=== PATIENT | female | born 1970 | race Caucasian/White ===

== ENCOUNTER 2016-10-29 10:40 | Outpatient (CLI) | payer OTHER ==
[2015-06-10 11:35] VITALS: BP 146/77
[2016-10-29 11:00] LABS: BASOPHILS % 0.4 (0.0-1.5); EOSINOPHILS % 4.1 % (0.0-6.8); MEAN CORPUSCULAR HEMOGLOBIN 27.8 pg (28.0-34.0); MEAN CORPUSCULAR VOLUME 86.5 fl (80.0-100.0); MONOCYTES % 3.5 % (0.0-11.0); NEUTROPHILS # 5.9 # k/uL (1.4-7.7)
[2016-10-29 11:20] LABS: eGFR (African) > 60; eGFR (Non-African) > 60
--- NOTE | 2016-10-29 17:38 | Diagnostic Imaging Report ---
[facility] [address] [facility] [address] Report Submission Date: Oct 29, 2016 5:15:51 PM CDT Patient Study Name: TIMOTHY AREVALO Date: Oct 29, 2016 12:17:43 PM CDT Modality Type: US Gender: F Description: : 66 Institution: [facility] Physician: RILEY CALDERA Duplex sonography of deep venous system of the right lower extremity with color Doppler analysis . Clinical history: Pain and swelling with bruising of the right calf . There is a popliteal cyst of the right knee measures 6 x 4 x 3 cm. No visible deep venous thrombosis, the veins are patent and normally compressed from the right inguinal region down to the lower calf. Doppler signals and Doppler wave spine were obtained and appear to be normal Impression: Right popliteal cyst extending into the upper calf No deep venous thrombosis Electronically signed on Oct 29, 2016 5:15:51 PM CDT by: Royer LEE
== END 2016-10-29 10:42 ==
LOC: RAD 10:40
PROVIDERS: ATTEND Physician Assistant
DX: E03.9 Hypothyroidism, unspecified (principal); R53.83 Other fatigue; M79.661 Pain in right lower leg; Z86.718 Personal history of other venous thrombosis and embolism
CPT/HCPCS: 36415; 80053; 84443; 85025; 93971

== ENCOUNTER 2018-02-28 09:44 | Outpatient (CLI) | payer OTHER ==
[2015-06-10 11:35] VITALS: BP 146/77
== END 2018-02-28 09:45 ==
LOC: LAB 09:44
PROVIDERS: ATTEND Family Medicine
DX: E03.9 Hypothyroidism, unspecified (principal)
CPT/HCPCS: 36415; 84443

== ENCOUNTER 2018-08-02 08:59 | Outpatient (CLI) | payer OTHER ==
[2015-06-10 11:35] VITALS: BP 146/77
[2018-08-02 09:50] LABS: MEAN CORPUSCULAR HEMOGLOBIN 25.5 pg (28.0-34.0)
[2018-08-02 10:23] LABS: eGFR (Non-African) > 60
== END 2018-08-02 09:03 ==
LOC: LAB 08:59
PROVIDERS: ATTEND Family Medicine
DX: R10.11 Right upper quadrant pain (principal)
CPT/HCPCS: 36415; 80053; 85027

== ENCOUNTER 2018-12-29 10:06 | Outpatient (CLI) | payer OTHER ==
[2015-06-10 11:35] VITALS: BP 146/77
--- NOTE | 2019-02-02 10:42 | Diagnostic Imaging Report ---
GABRIEL MATOS [facility] [address] [facility] [address] [address] Report Submission Date: Dec 29, 2018 10:40:48 AM CDT Patient Study Name: TIMOTHY AREVALO Date: Dec 29, 2018 10:09:23 AM CDT Modality Type: DX Gender: F Description: ANKLE 3 VIEWS OR MORE : 66 Institution: [facility] Physician: GABRIEL MATOS Exam: Right ankle. History: Pain for 1 week. Injury. AP, lateral and mortise view of the right ankle are submitted. No signs of acute fracture or dislocations are identified. Sclerosis and spurring at the ankle joint is noted. Ankle mortise is adequately maintained. Medial soft tissue swelling is noted. Degenerate changes at the talonavicular joint are noted. Spur off the plantar surface of the calcaneus are noted. Impression: Degenerate changes. Heel spur. Medial soft tissue swelling. Electronically signed on Dec 29, 2018 10:40:48 AM CDT by: Bryn LEE
== END 2018-12-29 10:11 | disposition home or self-care (01) ==
LOC: RAD 10:06
PROVIDERS: ATTEND Family Medicine
DX: M25.571 Pain in right ankle and joints of right foot (principal)
CPT/HCPCS: 73610

== ENCOUNTER 2019-01-19 08:27 | Outpatient (CLI) | payer OTHER ==
[2015-06-10 11:35] VITALS: BP 146/77
--- NOTE | 2019-01-25 15:10 | OP Clinic Progress Note ---
NICOLE MASON ADMISSION#.: [id number] : 1970 DATE OF VISIT: 01/19/2019 SUBJECTIVE: Nicole Mason is a 48-year-old female presenting to clinic today for follow-up of right ankle/foot pain. The patient has had x-rays performed previously as well as an MRI performed previously. We have been unable to look at the x-rays or MRI previously due to computer issues. I was able to look at the x-rays today, however, as well as review the x-ray read suggesting spurring at the ankle joint as well as sclerosis at the ankle joint. Those are the most significant things noted. She also had the MRI read which I reviewed last visit that suggested right ankle arthritis and right lateral ankle ligament chronic sprain of the CFL as well as chronic complete ATFL tear of the right ankle as well as chronic deltoid ligament partial tear. The patient also admits to some Achilles tendinitis of the right foot today. The patient states that she is continuing to have pain and she has not been able to obtain an ankle brace yet. She states that if we are able to, or need to do a boot later on she will need to use a rollabout scooter so that she can protect herself. She has a bad left knee as well. The patient had a visit most recently where we gave her a prescription for the brace which she has not been able to obtain yet but at her most recent visit on 01/10/19 we discussed the possibility of an ankle injection to see how much improvement that gives her as she is having a significant amount of pain on the lateral ankle ligaments and lateral part of her ankle. OBJECTIVE: Vitals: Temperature 97.8, heart rate 85, respiration rate 18, blood pressure 103/58. O2 saturation is 93% on room air. Vascular: 2+ DP and PT pulses, right foot. Capillary refill time is less than 3 seconds to the toes of the right foot. There is no edema noted, right foot or ankle. Dermatologic: There is no ecchymosis noted or erythema or open lesions, right foot. Musculoskeletal: There is significant pain on palpation noted at the ATFL region of the right ankle as well as at the anterolateral aspect of the ankle, right side. There is also pain on palpation at the sinus tarsi of the right side of the right foot. There is also slight pain on palpation of the Achilles tendon in the watershed region of the right lower extremity. There is some pain with inversion of the subtalar joint deep within but there is no significant pain at the CFL region of the lateral ankle. There is normal range of motion of about 15-20 degrees inversion with only 5 or so degrees eversion of the right side. There is no significant pain with range of motion of the ankle. The pain with range of motion is more so in the distal Achilles area. Neurologic: Light touch sensation is intact to the toes, right foot. ASSESSMENT AND PLAN: 1. Right ankle arthritis. 2. Right lateral ankle ligament, chronic sprain of the CFL. 3. 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 4. Chronic deltoid partial tear, right. 5. Achilles tendinitis, right. A consent was obtained and discussion regarding the risks and benefits of a steroid injection in the right ankle. We will see if this provides any relief at this time for this patient due to the obvious arthritis on x-ray and spurring and sclerosis of the ankle joint. We will see if this also helps with the ATFL area where there is a complete tear. We will determine how much this helps. PROCEDURE #1: Steroid injection of the right ankle was performed. An alcohol swab was utilized in the anterolateral portion of the right ankle and an injection consisting of 1 mL of 2% lidocaine plain and 1 mL of 0.5% Marcaine plain, 0.5 mL of dexamethasone 4 mg/mL and 0.5 mL of Kenalog 40 mg/mL was injected into the right ankle. Hemostasis was obtained with pressure and a Band-Aid was applied. The patient tolerated the procedure very well. We will see how well the patient does with this ankle injection and we will have her return to clinic in 2-3 weeks and if she is not improving then we will likely need to discuss immobilization with a boot or begin surgical preparation for possible lateral ankle instability stabilization to repair the ATFL and possible ankle arthroscopy to clean out the joint. The patient would like to avoid this if possible and we will explore options as much as we can before surgery. We will do this until the patient feels she is not getting better or that she was ready to go forward with surgery. Return to the clinic in 2-3 weeks for follow-up. Hasmukh Wang D.P.M. (Dictated/Not Signed) Kami Job#: [id number] MTDD
== END 2019-01-19 09:30 ==
LOC: POD 08:27
PROVIDERS: ATTEND Podiatrist Foot & Ankle Surgery
DX: S93.421A Sprain of deltoid ligament of right ankle, initial encounter (principal); S93.411A Sprain of calcaneofibular ligament of right ankle, initial encounter; M76.61 Achilles tendinitis, right leg
CPT/HCPCS: 20605; 99213

== ENCOUNTER 2019-03-13 09:23 | Outpatient (CLI) | payer OTHER ==
[2015-06-10 11:35] VITALS: BP 146/77
== END 2019-03-13 09:25 ==
LOC: LAB 09:23
PROVIDERS: ATTEND Family Medicine
DX: E03.9 Hypothyroidism, unspecified (principal)
CPT/HCPCS: 36415; 84443